=== PATIENT | male | born 1955 | race Caucasian/White ===

== ENCOUNTER → 2024-03-14 | Outpatient (CLI) | payer MEDICARE ==
--- NOTE | 2024-03-14 14:40 | US ---
EXAMINATION TYPE: US kidneys/renal and bladder DATE OF EXAM: 03/14/2024 COMPARISON: NONE CLINICAL INDICATION: Male, 68 years old with history of R35.1 NOCTURIA,R33.9 RETENTION OF URINE, UNSP ECIFI; EXAM MEASUREMENTS: Right Kidney: 11.3 x 4.8 x 5.8 cm Left Kidney: 11.9 x 5.8 x 5.6 cm Post Void Residual: 200.2ml Right Kidney: wnl Left Kidney: 0.5cm echogenic focus medial inferior pole, 5.3 x 5.6 x 5.3cm cyst medial superior pole Bladder: wnl Bilateral Jets seen: yes Normal Post Void Residual: no There is no evidence for hydronephrosis at this point in time. No masses are identified. The urinar y bladder is anechoic. Bilateral ureteral jets are seen. IMPRESSION: 1. Large 5.6 cm simple cortical cyst of the left kidney. 2. Probable small 5 mm left lower pole renal calcification. 3. Large abnormal postvoid residual 4. No solid renal mass or hydronephrosis.
== END | disposition home or self-care (01) ==
LOC: RADUSWWP 12:30
PROVIDERS: ATTEND Family Medicine
DX: N28.1 Cyst of kidney, acquired (principal); N40.0 Benign prostatic hyperplasia without lower urinary tract symptoms; R35.1 Nocturia; R39.198 Other difficulties with micturition; R33.9 Retention of urine, unspecified
CPT/HCPCS: 76770

== ENCOUNTER → 2025-03-26 | Outpatient (CLI) | payer MEDICARE ==
--- NOTE | 2025-03-26 13:40 | US ---
EXAMINATION TYPE: US kidneys/renal and bladder DATE OF EXAM: 03/26/2025 COMPARISON: US March 14, 2024 CLINICAL INDICATION: Male, 69 years old with history of N20.0 KIDNEY STONE; Pt states known kidney st one visualized at outside facility TECHNIQUE: Grayscale imaging of the bilateral kidneys and urinary bladder: FINDINGS: EXAM MEASUREMENTS: Right Kidney: 12.6 x 4.7 x 5.5 cm Left Kidney: 12.6 x 5.8 x 5.4 cm Right Kidney: No evidence of hydro Left Kidney: No evidence of hydro, cystic lesion mid/medial= 5.7 x 4.8 x 5.5 cm Bladder: Possible small bladder wall diverticula Bilateral Jets seen: Yes No evidence of calculi bilaterally by ultrasound There is no evidence for hydronephrosis at this point in time. No nephrolithiasis is seen. Stable si mple 5.7 cm thin-walled cyst in left kidney. The urinary bladder is anechoic. IMPRESSION: No hydronephrosis seen bilaterally. Both distal ureter jets are identified. If concern fo r nonobstructing renal calculi, consider noncontrast CT follow-up. [facility], , 03/26/2025 1:38 PM
== END | disposition home or self-care (01) ==
LOC: RADUSWWP 12:29
PROVIDERS: ATTEND Family Medicine
DX: N20.0 Calculus of kidney (principal); Z96.0 Presence of urogenital implants
CPT/HCPCS: 76770